=== PATIENT | female | born 1985 ===

== ENCOUNTER 2018-02-24 09:25 | Emergency (ER) | payer OTHER ==
[~2018-02-24] VITALS: Ht 157.5 cm; Wt 49.9 kg
[~2018-02-24 09:25] MED LIST: CEFTIN250 MG PO
== END 2018-02-24 14:25 | disposition home or self-care (01) ==
LOC: ER 09:25
DX: O20.0 Threatened abortion (principal)

== ENCOUNTER 2018-09-17 10:59 | Outpatient (CLI) | payer OTHER | END 2018-09-17 17:19 | disposition home or self-care (01) | LOC: OBS/DEL 10:59 | DX: O47.1 False labor at or after 37 completed weeks of gestation (principal); Z34.83 Encounter for supervision of other normal pregnancy, third trimester | CPT/HCPCS: 72195 ==

== ENCOUNTER 2018-09-21 08:05 | Inpatient (IN) | payer OTHER ==
[~2018-09-21] VITALS: Ht 149.9 cm; Wt 2.7 kg
== END 2018-09-24 13:38 | disposition home or self-care (01) | DRG 785 ==
LOC: OB/GYN 08:05 → LDR 08:05 → OB/GYN 14:34
PROVIDERS: ADMIT Specialist
PROC: 0UL70ZZ Occlusion of Bilateral Fallopian Tubes, Open Approach (ICD-10-PCS; 2018-09-21)
PROC: 4A1HXCZ Monitoring of Products of Conception, Cardiac Rate, External Approach (ICD-10-PCS; 2018-09-21)
PROC: 10D00Z1 Extraction of Products of Conception, Low, Open Approach (ICD-10-PCS; principal; 2018-09-21 12:15)
DX: O82 Encounter for cesarean delivery without indication (principal); Z3A.38 38 weeks gestation of pregnancy; Z37.0 Single live birth; Z30.2 Encounter for sterilization; Z22.330 Carrier of Group B streptococcus

== ENCOUNTER → 2019-05-25 | Emergency (ER) | payer OTHER ==
[~2019-05-25] VITALS: Ht 149.9 cm; Wt 50.3 kg
== END | disposition home or self-care (01) ==
LOC: ER 10:55
DX: S20.221A Contusion of right back wall of thorax, initial encounter (principal); M54.89 Other dorsalgia; V49.88XA Car occupant (driver) (passenger) injured in other specified transport accidents, initial encounter; Y93.89 Activity, other specified; Y92.480 Sidewalk as the place of occurrence of the external cause; Y99.8 Other external cause status